=== PATIENT | male | born 1985 | race Caucasian/White ===

== ENCOUNTER 2023-10-11 02:35 | Emergency (ER) | payer BC, SELFPAY ==
[2023-10-11 02:41] VITALS: BP 148/83
[2023-10-11] MEDS: ATIVAN 2 MG IM (03:04)
[2023-10-11] MEDS: HALDOL 10 MG IM (03:07)
--- NOTE | 2023-10-11 05:16 | ED.GENMED ---
History of Present Illness
General
Chief Complaint: Crisis Evaluation
Source: patient and police
Exam Limitations: clinical condition and altered mental status
Time Seen by Provider: 10/11/23 02:44
Nursing documentation reviewed up to this point in time: agreed with
Travel History
Have you had any contact with someone who has COVID-19?: Unable to Answer
Do you have any symptoms of coronavirus? Fever > 100 degrees, chills, cough, shortness of breath, sore throat, loss of taste or smell, muscle aches, or headache?: No
History of Present Illness
History of Present Illness:
37-year-old male that presents with psychotic episodes that include anger hallucinations and irrational behavior. Patient has a history of PTSD and has had PTSD episodes. Tonight patient was allegedly threatening the safety of others. Patient is
minimally cooperative at this time.
Past History
Past History
ED Past Medical History: Asthma (has not bothered him for 'years.') and Psychiatric
Social History
Tobacco: Smoker
Alcohol: Occasional
Personal:
Living: with family
Employment: Not employed
Phy Exam
General Physical Exam
General Presentation: moderate distress
General age: appears older than age
General Skin: warm and dry
General Habitus: normal
Neurological Exam
Neurological Exam: confused
Musculoskeletal Exam
Musculoskeletal Exam: full ROM and neuro vasc intact
Skin Exam
Skin Exam: other (Multiple tattoos)
Psychiatric Exam
Psychiatric Exam: anxious, delusions, hallucination and paranoia
Course
Orders/Labs/Results
Orders:
Orders
10/11/23 03:03
Lorazepam [Ativan] 2 mg IM NOW STA
10/11/23 03:06
Haloperidol Lactate [Haldol] 10 mg IM NOW STA
Vital Signs
Initial and Last Documented VS:
Initial Vital Signs
Resp
18
10/11/23 02:37
Last Documented Vital Signs
Temp Pulse Resp BP Pulse Ox
98.0 F 91 18 148/83 98
10/11/23 02:41 10/11/23 02:41 10/11/23 02:41 10/11/23 02:41 10/11/23 02:41
*Critical Care Note
Total Time (30-74mins, 75-104mins- exclusive of procedures): Not Applicable
ED Attending Note
-
Portions of this chart may have been created with voice recognition software.� Occasional wrong word or��sound alike� substitutions may have occurred due to the inherent limitations of voice recognition software.
Discharge Plan
Departure
Patient Disposition: Psych Facility
Date of Disposition: 10/11/23
Time of Disposition: 05:21
Discharge Problem:
Schizophrenia
Prescriptions:
No Action
baclofen 20 mg Tablet
40 mg PO TID
lurasidone [Latuda] 80 mg Tablet
80 mg PO QPM
Rx Instructions:
must administer with food (at least 350 calories)- 03/01/23-patient asking not to be giving this today cause it makes him shake, but has been taking her regular at home
nicotine (polacrilex) 2 mg Gum
4 mg BUCCAL Q1HPRN PRN (Reason: vaper control )
cyanocobalamin (vitamin B-12) 1,000 mcg Tablet
1,000 mcg PO DAILY
propranolol 10 mg Tablet
10 mg PO BID
benztropine 1 mg Tablet
1 mg PO BID
oxcarbazepine 600 mg Tablet
600 mg PO HS
Rx Instructions:
03/01/23-patien exaplained he was only taking one at night, but prescription written for 600mg bid
Referrals:
UNKNOWN - PT DOES,NOT KNOW [Family Provider] -
Interventions
Interventions:
*Risk Screen - Suicide Last Done: 10/11/23 02:50
*General Assessment Last Done: 10/11/23 02:50
*Neglect/Abuse Screening Last Done: 10/11/23 02:50
ED- Fall Risk Assessment Last Done: 10/11/23 03:08
*ED COVID-19 Vaccine History Last Done: 10/11/23 02:50
*Nursing Disposition Last Done: 10/11/23 09:36
ED-Psychological Assessment Last Done: 10/11/23 03:08
Discharge Date and Time
Discharge Date/Time: 10/11/23 09:38
Print Language: OMANI
--- NOTE | 2023-10-11 08:26 | ED TECH ---
Pt repeatedly leaving room and asking to make phone calls. This PCT called crisis and asked if e was allowed to have his phone. Teresita from crisis brought his phone back, pt making phone calls. Per Teresita from crisis, pt is leaving for [place] @ 10am.
Will continue with 1:1 until transport arrives.
== END 2023-10-11 09:38 ==
LOC: EMR 02:35
PROVIDERS: EMERGENCY PHYSICIAN Student in an Organized Health Care Education/Training Program
DX: F20.9 Schizophrenia, unspecified (principal); F43.10 Post-traumatic stress disorder, unspecified; F17.200 Nicotine dependence, unspecified, uncomplicated
CPT/HCPCS: 99285; 96372 ×2

== ENCOUNTER 2024-08-01 21:19 | Emergency (ER) | payer BC, SELFPAY ==
[2024-08-01 21:19] VITALS: BMI 25.6
[2024-08-01] MEDS: KETAMINE HCL 300 MG IM (22:37)
[2024-08-01 23:00] VITALS: BP 189/66
--- NOTE | 2024-08-01 23:01 | ED.GENMED ---
History of Present Illness
<Neymar Calhoun MD - Last Filed: 08/05/24 06:28>
General
Chief Complaint: Crisis Evaluation
Source: patient and police
Exam Limitations: altered mental status
Time Seen by Provider: 08/01/24 21:25
Nursing documentation reviewed up to this point in time: agreed with
History of Present Illness
History of Present Illness:
Patient with history of TBI, bipolar disorder, and PTSD, presents to ED for evaluation secondary to 'manic behavior' noted by his father. Patient's father called 911 and informed alfalfa dehydrator operator that he will be bringing patient to [facility], but
will need police assistance, due to his erratic behavior. Shortly after arriving in ED, patient noted to walk out to ED and proceeded to punch the flagpole with his right hand. Patient was subsequently assisted into one of the ED crisis beds,
where he proceeded to punch the right side of his head with his right hand, causing minor bleeding. Unable to obtain any further information at this time, as patient is uncooperative and pacing.
Past History
<Neymar Calhoun MD - Last Filed: 08/05/24 06:28>
Past History
ED Past Medical History: Asthma (has not bothered him for 'years.') and Psychiatric
Social History
Tobacco: Smoker
Alcohol: Occasional
Personal:
Living: with family
Employment: Not employed
Review of Systems
<Neymar Calhoun MD - Last Filed: 08/05/24 06:28>
Review of Systems
Allergies reviewed?: Yes
Unable to obtain full review of systems at this time due to: due to acuity
All Other Systems: Not applicable
Phy Exam
<Neymar Calhoun MD - Last Filed: 08/05/24 06:28>
Physical Exam
Physical Exam:
Physical Exam
General: moderate distress. agitated.
Head: superficial abrasion noted over right temporal scalp without active bleeding
Neck: supple. normal range of motion
Heart: s1/s2 regular rate and rhythm, no murmur.
Lungs: no acute respiratory distress. clear bilaterally
Abdomen: normal bowel sounds. not tender.
Neuro: alert and awake. no focal neurological deficits
Skin: no rash
Psychiatric: agitated, uncooperative
Extremities: right hand swelling noted along MCP noted, without obvious deformity
Course
<Neymar Calhoun MD - Last Filed: 08/05/24 06:28>
Orders/Labs/Results
Orders:
Orders
08/01/24 21:57
Ketamine Concentrate Injection [Ketamine HCl] 300 mg IM NOW STA
08/01/24 21:58
Ketamine Concentrate Injection [Ketamine HCl] 500 mg .ROUTE .STK-MED ONE
08/01/24 22:52
CT Head W/o Iv Contrast Urgent
Comment:
Reason For Exam: trauma with mental status change
CR Hand - Right Min 3 Views Urgent
Comment:
Reason For Exam: trauma
08/01/24 22:55
1:1 Observation - Suicide/ Violent Behavior As Directed
1:1 Observation - Suicide/ Violent Behavior As Directed
Urine Drug Abuse Screen Urgent
Date Specimen was Collected: 08/01/24
Time Specimen was Collected: 23:39
Restraints - Violent As Directed
Restraint Type-: Locked-4 point/4 rails
Apply From (date): 08/01/24
Apply from (time): 22:45
Remove (date): 08/02/24
Remove (time): 02:45
08/01/24 22:59
Acetaminophen Urgent
Alcohol Urgent
Complete Blood Count/No Diff Urgent
Comprehensive Metabolic Panel Urgent
Creatine Phosphokinase Urgent
Comment: ADD ON
Salicylate Urgent
08/01/24 23:06
Lorazepam [Ativan] 2 mg .ROUTE .STK-MED ONE
08/01/24 23:11
Ketamine [Ketalar] 70 mg IV NOW STA
Lorazepam [Ativan] 2 mg IV NOW STA
08/01/24 23:53
Crisis Consult Urgent
Reason for Consult: manic behavior
08/02/24 00:16
Haloperidol Lactate [Haldol] 5 mg IV NOW STA
Lorazepam [Ativan] 1 mg IV NOW STA
08/02/24 00:17
Haloperidol Lactate [Haldol] 5 mg .ROUTE .STK-MED ONE
Lorazepam [Ativan] 2 mg .ROUTE .STK-MED ONE
08/02/24 00:24
Electrocardiogram (*1) Urgent
Reason for Study: QTc Monitoring
EKG- Treatment ONCE
08/02/24 00:30
Lorazepam [Ativan] 1 mg IV NOW STA
08/02/24 00:40
0.9% Sodium Chloride 1000 ml [Nss] 1,000 ml IV BOLUS
08/02/24 01:17
Lorazepam [Ativan] 2 mg IV NOW STA
Olanzapine [Zyprexa] 10 mg IM NOW STA
08/02/24 01:40
Ketamine [Ketalar] 100 mg IV NOW STA
08/02/24 01:50
Add On- LAB Urgent
Tests Added?: cpk
08/02/24 02:30
Haloperidol Lactate [Haldol] 5 mg IV NOW STA
08/02/24 02:44
1:1 Observation - Suicide/ Violent Behavior As Directed
Restraints - Violent As Directed
Restraint Type-: Locked-4 point/4 rails
Apply From (date): 08/02/24
Apply from (time): 02:44
Remove (date): 08/02/24
Remove (time): 06:44
08/02/24 05:00
PSYCHIATRY CONSULT Urgent
Consulting Provider: Sravan Nieto
Was physician already notified: No
Reason for consult: anxiety
Haloperidol Lactate [Haldol] 5 mg IV NOW STA
08/02/24 05:01
Consult Notification Routine
Specialty to Notify: Psychiatry
Date consulting provider notified: 08/02/24
Time consulting provider notified: 09:11
Notified:: Provider
08/02/24 05:35
Basic Metabolic Panel Urgent
08/02/24 06:44
Restraints - Violent As Directed
Restraint Type-: Locked-4 point/4 rails
Apply From (date): 08/02/24
Apply from (time): 06:49
Remove (date): 08/02/24
Remove (time): 10:49
08/02/24 09:51
Creatine Phosphokinase Urgent
Fkmzo-Fvyu-Fbzthxp Urgent
08/02/24 10:49
0.9% Sodium Chloride 1000 ml [Nss] 1,000 ml IV BOLUS
08/02/24 11:39
Fentanyl, Urine Urgent
08/02/24 20:00
0.9% Sodium Chloride 1000 ml [Nss] 1,000 ml IV BOLUS
08/02/24 20:41
Consult Hospitalist [HOSPITALIST CONSULT] Urgent
Consulting Provider: Jitendra Cunningham
Was physician already notified: Yes
08/02/24 20:52
Olanzapine [Zyprexa] 5 mg PO NOW STA
08/02/24 21:13
0.9% Sodium Chloride [Nss (Preservative Free)] 1 ml IV Q4HPRN PRN
Lorazepam [Ativan] 2 mg IV Q4HPRN PRN
08/02/24 21:15
0.9% Sodium Chloride 1000 ml [Nss] 1,000 ml IV 250 mls/hr
08/02/24 21:32
Oxcarbazepine [Trileptal] 300 mg PO NOW STA
08/02/24 21:34
Case Management Consult Once
Case Management Consult: Other
Comment: Substance abuse counseling
DIETARY IP CONSULT Routine
Reason for Consult: Nutrition support, possible refeeding guidelines
0.9% Sodium Chloride [Nss (Preservative Free)] See Protocol IV PRN PRN
FOLic ACID [Folvite] 1 mg 0.9% Sodium Chloride 50 ml [Nss] 50 ml IV DAILYPRN
Lorazepam [Ativan] 1 mg IV Q1HPRN PRN
Lorazepam [Ativan] 1 mg PO Q2HPRN PRN
Lorazepam [Ativan] 2 mg IV Q1HPRN PRN
MSAS SCORE As Directed
MSAS Score 0-4: Repeat MSAS every 2 hours until 0-4 for three consecutive assessments, then every 4 hours x 48
hours.
MSAS Score 5-7: For MILD withdrawl symptoms. Repeat MSAS and RASS every 2 hours
MSAS Score 8-11: For MODERATE withdrawal symptoms. Repeat MSAS and RASS every 1 hour. Consider ICU or IMU
level of care.
MSAS Score > 11: For SEVERE withdrawal symptoms. Repeat MSAS and RASS every 1 hour. Notify provider, consider
ICU level of care.
MSAS Additional Instructions: If no improvement or no decrease in score from severe to moderate within 12
hours, consult psychiatry
MSAS Notify Provider: Notify provider if patient requires more than 10 mg of Lorazepam in eight hour period.
08/02/24 21:40
Urinalysis Urgent
Date Specimen was Collected: 08/03/24
Time Specimen was Collected: 07:59
08/02/24 21:46
Dextrose 50%-Water [Dextrose 50% Syringe] 12.5 grams IV [id number] PRN
Glucagon [GlucaGen] 1 mg IM PRN PRN
Bedside Glucose Monitoring As Directed
Frequency: AC&HS
Additional Instructions:: Change to q6h if pt on TPN, tube feeding or not eating
08/02/24 22:00
Flush (0.9% Sodium Chloride) [Flush (Nss)] See Dose Instructions IV PER PROTOCOL
Quetiapine Fumarate [Seroquel] 100 mg PO HS
08/03/24 00:00
Thiamine Injection 200 mg IV Q8
08/03/24 06:05
CBC/No Diff [Complete Blood Count/No Diff] IN AM
CPK [Creatine Phosphokinase] IN AM
Comprehensive Metabolic Panel Routine
Direct Bilirubin Routine
Glycohemoglobin (HgbA1c) IN AM
08/03/24 06:56
0.9% Sodium Chloride 1000 ml [Nss] 1,000 ml IV BOLUS
08/03/24 07:30
Insulin Aspart Corrective Low [Novolog Flexpen-Low Resistance] See Protocol SC AC
08/03/24 08:00
FOLic ACID [Folvite] 1 mg PO DAILY
Oxcarbazepine [Trileptal] 300 mg PO BID
08/03/24 11:52
CPK [Creatine Phosphokinase] Routine
08/03/24 13:52
ED Special Safety Observation ONCE
Observation level: One to Two
08/03/24 19:04
Total CK [Creatine Phosphokinase] Urgent
08/04/24 06:00
Creatine Phosphokinase IN AM
08/04/24 18:32
Nicotine [Nicoderm Transdermal] 14 mg TRANSDERM DAILY
08/04/24 18:46
Total CK [Creatine Phosphokinase] Urgent
08/06/24 08:00
Thiamine HCl [Vitamin B1] 100 mg PO BID
Abnormal Lab Results
08/01/24 08/02/24 08/02/24
22:59 05:35 09:51
WBC 11.9 H 10^3/uL
(4.8-10.8)
RBC
MCH
Chloride 110 H mmol/L
(98-107)
Carbon Dioxide 21 L mmol/L
(22-30)
BUN 35 H mg/dl 30 H mg/dl
(9-20) (9-20)
Creatinine 1.5 H mg/dL
(0.7-1.3)
Hemoglobin A1c
Calcium
Total Bilirubin 1.4 H mg/dl
(0.2-1.3)
AST 200 H U/L 158 H U/L
(17-59) (17-59)
ALT 93 H U/L 87 H U/L
(0-50) (0-50)
Creatine Kinase 8828 H U/L 6714 H U/L
(55-170) (55-170)
Total Protein 5.8 L g/dl
(6.3-8.2)
Albumin
Urine Ketones
Salicylates < 1.0 L mg/dl
(2.0-20.0)
Acetaminophen < 10 L ug/ml
(03-13)
Ur Amphetamines Screen
U Benzodiazepines Scrn
U Marijuana (THC) Screen
POC Glucose
08/02/24 08/02/24 08/03/24
11:39 21:52 06:05
WBC
RBC 4.56 L 10^6/uL
(4.70-6.10)
MCH 31.4 H pg
(27.0-31.0)
Chloride 110 H mmol/L
(98-107)
Carbon Dioxide
BUN
Creatinine
Hemoglobin A1c 5.7 H %
(4.0-5.6)
Calcium 7.9 L mg/dl
(8.4-10.2)
Total Bilirubin
AST 121 H U/L
(17-59)
ALT 81 H U/L
(0-50)
Creatine Kinase 3905 H D U/L
(55-170)
Total Protein 4.9 L g/dl
(6.3-8.2)
Albumin 2.9 L g/dl
(3.5-5.0)
Urine Ketones
Salicylates
Acetaminophen
Ur Amphetamines Screen Positive H
(Negative)
U Benzodiazepines Scrn Positive H
(Negative)
U Marijuana (THC) Screen Positive H
(Negative)
POC Glucose 104 H mg/dl
(70-99)
08/03/24 08/03/24 08/03/24
08:00 09:31 11:52
WBC
RBC
MCH
Chloride
Carbon Dioxide
BUN
Creatinine
Hemoglobin A1c
Calcium
Total Bilirubin
AST
ALT
Creatine Kinase 3619 H U/L
(55-170)
Total Protein
Albumin
Urine Ketones 1+ A
(Negative)
Salicylates
Acetaminophen
Ur Amphetamines Screen
U Benzodiazepines Scrn
U Marijuana (THC) Screen
POC Glucose 154 H mg/dl
(70-99)
08/03/24 08/04/24 08/04/24
19:04 06:00 08:17
WBC
RBC
MCH
Chloride
Carbon Dioxide
BUN
Creatinine
Hemoglobin A1c
Calcium
Total Bilirubin
AST
ALT
Creatine Kinase 2921 H U/L 1402 H D U/L
(55-170) (55-170)
Total Protein
Albumin
Urine Ketones
Salicylates
Acetaminophen
Ur Amphetamines Screen
U Benzodiazepines Scrn
U Marijuana (THC) Screen
POC Glucose 125 H mg/dl
(70-99)
08/04/24
18:46
WBC
RBC
MCH
Chloride
Carbon Dioxide
BUN
Creatinine
Hemoglobin A1c
Calcium
Total Bilirubin
AST
ALT
Creatine Kinase 1146 H U/L
(55-170)
Total Protein
Albumin
Urine Ketones
Salicylates
Acetaminophen
Ur Amphetamines Screen
U Benzodiazepines Scrn
U Marijuana (THC) Screen
POC Glucose
08/03/24 06:05
08/03/24 06:05
Vital Signs
Initial and Last Documented VS:
Initial Vital Signs
Pulse Resp BP Pulse Ox
79 20 189/66 98
08/01/24 23:00 08/01/24 23:00 08/01/24 23:00 08/01/24 23:00
Last Documented Vital Signs
Temp Pulse Resp BP Pulse Ox
98.5 F 79 16 128/75 97
08/04/24 19:11 08/04/24 19:11 08/04/24 19:11 08/04/24 19:11 08/04/24 19:11
<Gunner Lew, DO - Last Filed: 08/02/24 06:55>
Orders/Labs/Results
Orders:
Orders
08/01/24 21:57
Ketamine Concentrate Injection [Ketamine HCl] 300 mg IM NOW STA
08/01/24 21:58
Ketamine Concentrate Injection [Ketamine HCl] 500 mg .ROUTE .STK-MED ONE
08/01/24 22:52
CT Head W/o Iv Contrast Urgent
Comment:
Reason For Exam: trauma with mental status change
CR Hand - Right Min 3 Views Urgent
Comment:
Reason For Exam: trauma
08/01/24 22:55
1:1 Observation - Suicide/ Violent Behavior As Directed
1:1 Observation - Suicide/ Violent Behavior As Directed
Urine Drug Abuse Screen Urgent
Date Specimen was Collected: 08/01/24
Time Specimen was Collected: 23:39
Restraints - Violent As Directed
Restraint Type-: Locked-4 point/4 rails
Apply From (date): 08/01/24
Apply from (time): 22:45
Remove (date): 08/02/24
Remove (time): 02:45
08/01/24 22:59
Acetaminophen Urgent
Alcohol Urgent
Complete Blood Count/No Diff Urgent
Comprehensive Metabolic Panel Urgent
Creatine Phosphokinase Urgent
Comment: ADD ON
Salicylate Urgent
08/01/24 23:06
Lorazepam [Ativan] 2 mg .ROUTE .STK-MED ONE
08/01/24 23:11
Ketamine [Ketalar] 70 mg IV NOW STA
Lorazepam [Ativan] 2 mg IV NOW STA
08/01/24 23:53
Crisis Consult Urgent
Reason for Consult: manic behavior
08/02/24 00:16
Haloperidol Lactate [Haldol] 5 mg IV NOW STA
Lorazepam [Ativan] 1 mg IV NOW STA
08/02/24 00:17
Haloperidol Lactate [Haldol] 5 mg .ROUTE .STK-MED ONE
Lorazepam [Ativan] 2 mg .ROUTE .STK-MED ONE
08/02/24 00:24
Electrocardiogram (*1) Urgent
Reason for Study: QTc Monitoring
EKG- Treatment ONCE
08/02/24 00:30
Lorazepam [Ativan] 1 mg IV NOW STA
08/02/24 00:40
0.9% Sodium Chloride 1000 ml [Nss] 1,000 ml IV BOLUS
08/02/24 01:17
Lorazepam [Ativan] 2 mg IV NOW STA
Olanzapine [Zyprexa] 10 mg IM NOW STA
08/02/24 01:40
Ketamine [Ketalar] 100 mg IV NOW STA
08/02/24 01:50
Add On- LAB Urgent
Tests Added?: cpk
08/02/24 02:30
Haloperidol Lactate [Haldol] 5 mg IV NOW STA
08/02/24 02:44
1:1 Observation - Suicide/ Violent Behavior As Directed
Restraints - Violent As Directed
Restraint Type-: Locked-4 point/4 rails
Apply From (date): 08/02/24
Apply from (time): 02:44
Remove (date): 08/02/24
Remove (time): 06:44
08/02/24 05:00
PSYCHIATRY CONSULT Urgent
Consulting Provider: Sravan Nieto
Was physician already notified: No
Reason for consult: anxiety
Haloperidol Lactate [Haldol] 5 mg IV NOW STA
08/02/24 05:01
Consult Notification Routine
Specialty to Notify: Psychiatry
Date consulting provider notified: 08/02/24
Time consulting provider notified: 09:11
Notified:: Provider
08/02/24 05:35
Basic Metabolic Panel Urgent
08/02/24 06:44
Restraints - Violent As Directed
Restraint Type-: Locked-4 point/4 rails
Apply From (date): 08/02/24
Apply from (time): 06:49
Remove (date): 08/02/24
Remove (time): 10:49
08/02/24 09:51
Creatine Phosphokinase Urgent
Vcbwp-Zkfo-Fphtvam Urgent
08/02/24 10:49
0.9% Sodium Chloride 1000 ml [Nss] 1,000 ml IV BOLUS
08/02/24 11:39
Fentanyl, Urine Urgent
08/02/24 20:00
0.9% Sodium Chloride 1000 ml [Nss] 1,000 ml IV BOLUS
08/02/24 20:41
Consult Hospitalist [HOSPITALIST CONSULT] Urgent
Consulting Provider: Jitendra Cunningham
Was physician already notified: Yes
08/02/24 20:52
Olanzapine [Zyprexa] 5 mg PO NOW STA
08/02/24 21:13
0.9% Sodium Chloride [Nss (Preservative Free)] 1 ml IV Q4HPRN PRN
Lorazepam [Ativan] 2 mg IV Q4HPRN PRN
08/02/24 21:15
0.9% Sodium Chloride 1000 ml [Nss] 1,000 ml IV 250 mls/hr
08/02/24 21:32
Oxcarbazepine [Trileptal] 300 mg PO NOW STA
08/02/24 21:34
Case Management Consult Once
Case Management Consult: Other
Comment: Substance abuse counseling
DIETARY IP CONSULT Routine
Reason for Consult: Nutrition support, possible refeeding guidelines
0.9% Sodium Chloride [Nss (Preservative Free)] See Protocol IV PRN PRN
FOLic ACID [Folvite] 1 mg 0.9% Sodium Chloride 50 ml [Nss] 50 ml IV DAILYPRN
Lorazepam [Ativan] 1 mg IV Q1HPRN PRN
Lorazepam [Ativan] 1 mg PO Q2HPRN PRN
Lorazepam [Ativan] 2 mg IV Q1HPRN PRN
MSAS SCORE As Directed
MSAS Score 0-4: Repeat MSAS every 2 hours until 0-4 for three consecutive assessments, then every 4 hours x 48
hours.
MSAS Score 5-7: For MILD withdrawl symptoms. Repeat MSAS and RASS every 2 hours
MSAS Score 8-11: For MODERATE withdrawal symptoms. Repeat MSAS and RASS every 1 hour. Consider ICU or IMU
level of care.
MSAS Score > 11: For SEVERE withdrawal symptoms. Repeat MSAS and RASS every 1 hour. Notify provider, consider
ICU level of care.
MSAS Additional Instructions: If no improvement or no decrease in score from severe to moderate within 12
hours, consult psychiatry
MSAS Notify Provider: Notify provider if patient requires more than 10 mg of Lorazepam in eight hour period.
08/02/24 21:40
Urinalysis Urgent
Date Specimen was Collected: 08/03/24
Time Specimen was Collected: 07:59
08/02/24 21:46
Dextrose 50%-Water [Dextrose 50% Syringe] 12.5 grams IV [id number] PRN
Glucagon [GlucaGen] 1 mg IM PRN PRN
Bedside Glucose Monitoring As Directed
Frequency: AC&HS
Additional Instructions:: Change to q6h if pt on TPN, tube feeding or not eating
08/02/24 22:00
Flush (0.9% Sodium Chloride) [Flush (Nss)] See Dose Instructions IV PER PROTOCOL
Quetiapine Fumarate [Seroquel] 100 mg PO HS
08/03/24 00:00
Thiamine Injection 200 mg IV Q8
08/03/24 06:05
CBC/No Diff [Complete Blood Count/No Diff] IN AM
CPK [Creatine Phosphokinase] IN AM
Comprehensive Metabolic Panel Routine
Direct Bilirubin Routine
Glycohemoglobin (HgbA1c) IN AM
08/03/24 06:56
0.9% Sodium Chloride 1000 ml [Nss] 1,000 ml IV BOLUS
08/03/24 07:30
Insulin Aspart Corrective Low [Novolog Flexpen-Low Resistance] See Protocol SC AC
08/03/24 08:00
FOLic ACID [Folvite] 1 mg PO DAILY
Oxcarbazepine [Trileptal] 300 mg PO BID
08/03/24 11:52
CPK [Creatine Phosphokinase] Routine
08/03/24 13:52
ED Special Safety Observation ONCE
Observation level: One to Two
08/03/24 19:04
Total CK [Creatine Phosphokinase] Urgent
08/04/24 06:00
Creatine Phosphokinase IN AM
08/04/24 18:32
Nicotine [Nicoderm Transdermal] 14 mg TRANSDERM DAILY
08/04/24 18:46
Total CK [Creatine Phosphokinase] Urgent
08/06/24 08:00
Thiamine HCl [Vitamin B1] 100 mg PO BID
Abnormal Lab Results
08/01/24 08/02/24 08/02/24
22:59 05:35 09:51
WBC 11.9 H 10^3/uL
(4.8-10.8)
RBC
MCH
Chloride 110 H mmol/L
(98-107)
Carbon Dioxide 21 L mmol/L
(22-30)
BUN 35 H mg/dl 30 H mg/dl
(9-20) (9-20)
Creatinine 1.5 H mg/dL
(0.7-1.3)
Hemoglobin A1c
Calcium
Total Bilirubin 1.4 H mg/dl
(0.2-1.3)
AST 200 H U/L 158 H U/L
(17-59) (17-59)
ALT 93 H U/L 87 H U/L
(0-50) (0-50)
Creatine Kinase 8828 H U/L 6714 H U/L
(55-170) (55-170)
Total Protein 5.8 L g/dl
(6.3-8.2)
Albumin
Urine Ketones
Salicylates < 1.0 L mg/dl
(2.0-20.0)
Acetaminophen < 10 L ug/ml
(10-30)
Ur Amphetamines Screen
U Benzodiazepines Scrn
U Marijuana (THC) Screen
POC Glucose
08/02/24 08/02/24 08/03/24
11:39 21:52 06:05
WBC
RBC 4.56 L 10^6/uL
(4.70-6.10)
MCH 31.4 H pg
(27.0-31.0)
Chloride 110 H mmol/L
(98-107)
Carbon Dioxide
BUN
Creatinine
Hemoglobin A1c 5.7 H %
(4.0-5.6)
Calcium 7.9 L mg/dl
(8.4-10.2)
Total Bilirubin
AST 121 H U/L
(17-59)
ALT 81 H U/L
(0-50)
Creatine Kinase 3905 H D U/L
(55-170)
Total Protein 4.9 L g/dl
(6.3-8.2)
Albumin 2.9 L g/dl
(3.5-5.0)
Urine Ketones
Salicylates
Acetaminophen
Ur Amphetamines Screen Positive H
(Negative)
U Benzodiazepines Scrn Positive H
(Negative)
U Marijuana (THC) Screen Positive H
(Negative)
POC Glucose 104 H mg/dl
(70-99)
08/03/24 08/03/24 08/03/24
08:00 09:31 11:52
WBC
RBC
MCH
Chloride
Carbon Dioxide
BUN
Creatinine
Hemoglobin A1c
Calcium
Total Bilirubin
AST
ALT
Creatine Kinase 3619 H U/L
(55-170)
Total Protein
Albumin
Urine Ketones 1+ A
(Negative)
Salicylates
Acetaminophen
Ur Amphetamines Screen
U Benzodiazepines Scrn
U Marijuana (THC) Screen
POC Glucose 154 H mg/dl
(70-99)
08/03/24 08/04/24 08/04/24
19:04 06:00 08:17
WBC
RBC
MCH
Chloride
Carbon Dioxide
BUN
Creatinine
Hemoglobin A1c
Calcium
Total Bilirubin
AST
ALT
Creatine Kinase 2921 H U/L 1402 H D U/L
(55-170) (55-170)
Total Protein
Albumin
Urine Ketones
Salicylates
Acetaminophen
Ur Amphetamines Screen
U Benzodiazepines Scrn
U Marijuana (THC) Screen
POC Glucose 125 H mg/dl
(70-99)
08/04/24
18:46
WBC
RBC
MCH
Chloride
Carbon Dioxide
BUN
Creatinine
Hemoglobin A1c
Calcium
Total Bilirubin
AST
ALT
Creatine Kinase 1146 H U/L
(55-170)
Total Protein
Albumin
Urine Ketones
Salicylates
Acetaminophen
Ur Amphetamines Screen
U Benzodiazepines Scrn
U Marijuana (THC) Screen
POC Glucose
08/03/24 06:05
08/03/24 06:05
Vital Signs
Initial and Last Documented VS:
Initial Vital Signs
Pulse Resp BP Pulse Ox
79 20 189/66 98
08/01/24 23:00 08/01/24 23:00 08/01/24 23:00 08/01/24 23:00
Last Documented Vital Signs
Temp Pulse Resp BP Pulse Ox
98.5 F 79 16 128/75 97
08/04/24 19:11 08/04/24 19:11 08/04/24 19:11 08/04/24 19:11 08/04/24 19:11
<Lizbeth Wagner MD - Last Filed: 08/03/24 03:44>
Orders/Labs/Results
Orders:
Orders
08/01/24 21:57
Ketamine Concentrate Injection [Ketamine HCl] 300 mg IM NOW STA
08/01/24 21:58
Ketamine Concentrate Injection [Ketamine HCl] 500 mg .ROUTE .STK-MED ONE
08/01/24 22:52
CT Head W/o Iv Contrast Urgent
Comment:
Reason For Exam: trauma with mental status change
CR Hand - Right Min 3 Views Urgent
Comment:
Reason For Exam: trauma
08/01/24 22:55
1:1 Observation - Suicide/ Violent Behavior As Directed
1:1 Observation - Suicide/ Violent Behavior As Directed
Urine Drug Abuse Screen Urgent
Date Specimen was Collected: 08/01/24
Time Specimen was Collected: 23:39
Restraints - Violent As Directed
Restraint Type-: Locked-4 point/4 rails
Apply From (date): 08/01/24
Apply from (time): 22:45
Remove (date): 08/02/24
Remove (time): 02:45
08/01/24 22:59
Acetaminophen Urgent
Alcohol Urgent
Complete Blood Count/No Diff Urgent
Comprehensive Metabolic Panel Urgent
Creatine Phosphokinase Urgent
Comment: ADD ON
Salicylate Urgent
08/01/24 23:06
Lorazepam [Ativan] 2 mg .ROUTE .STK-MED ONE
08/01/24 23:11
Ketamine [Ketalar] 70 mg IV NOW STA
Lorazepam [Ativan] 2 mg IV NOW STA
08/01/24 23:53
Crisis Consult Urgent
Reason for Consult: manic behavior
08/02/24 00:16
Haloperidol Lactate [Haldol] 5 mg IV NOW STA
Lorazepam [Ativan] 1 mg IV NOW STA
08/02/24 00:17
Haloperidol Lactate [Haldol] 5 mg .ROUTE .STK-MED ONE
Lorazepam [Ativan] 2 mg .ROUTE .STK-MED ONE
08/02/24 00:24
Electrocardiogram (*1) Urgent
Reason for Study: QTc Monitoring
EKG- Treatment ONCE
08/02/24 00:30
Lorazepam [Ativan] 1 mg IV NOW STA
08/02/24 00:40
0.9% Sodium Chloride 1000 ml [Nss] 1,000 ml IV BOLUS
08/02/24 01:17
Lorazepam [Ativan] 2 mg IV NOW STA
Olanzapine [Zyprexa] 10 mg IM NOW STA
08/02/24 01:40
Ketamine [Ketalar] 100 mg IV NOW STA
08/02/24 01:50
Add On- LAB Urgent
Tests Added?: cpk
08/02/24 02:30
Haloperidol Lactate [Haldol] 5 mg IV NOW STA
08/02/24 02:44
1:1 Observation - Suicide/ Violent Behavior As Directed
Restraints - Violent As Directed
Restraint Type-: Locked-4 point/4 rails
Apply From (date): 08/02/24
Apply from (time): 02:44
Remove (date): 08/02/24
Remove (time): 06:44
08/02/24 05:00
PSYCHIATRY CONSULT Urgent
Consulting Provider: Sravan Nieto
Was physician already notified: No
Reason for consult: anxiety
Haloperidol Lactate [Haldol] 5 mg IV NOW STA
08/02/24 05:01
Consult Notification Routine
Specialty to Notify: Psychiatry
Date consulting provider notified: 08/02/24
Time consulting provider notified: 09:11
Notified:: Provider
08/02/24 05:35
Basic Metabolic Panel Urgent
08/02/24 06:44
Restraints - Violent As Directed
Restraint Type-: Locked-4 point/4 rails
Apply From (date): 08/02/24
Apply from (time): 06:49
Remove (date): 08/02/24
Remove (time): 10:49
08/02/24 09:51
Creatine Phosphokinase Urgent
Wzjxv-Niqv-Bariddy Urgent
08/02/24 10:49
0.9% Sodium Chloride 1000 ml [Nss] 1,000 ml IV BOLUS
08/02/24 11:39
Fentanyl, Urine Urgent
08/02/24 20:00
0.9% Sodium Chloride 1000 ml [Nss] 1,000 ml IV BOLUS
08/02/24 20:41
Consult Hospitalist [HOSPITALIST CONSULT] Urgent
Consulting Provider: Jitendra Cunningham
Was physician already notified: Yes
08/02/24 20:52
Olanzapine [Zyprexa] 5 mg PO NOW STA
08/02/24 21:13
0.9% Sodium Chloride [Nss (Preservative Free)] 1 ml IV Q4HPRN PRN
Lorazepam [Ativan] 2 mg IV Q4HPRN PRN
08/02/24 21:15
0.9% Sodium Chloride 1000 ml [Nss] 1,000 ml IV 250 mls/hr
08/02/24 21:32
Oxcarbazepine [Trileptal] 300 mg PO NOW STA
08/02/24 21:34
Case Management Consult Once
Case Management Consult: Other
Comment: Substance abuse counseling
DIETARY IP CONSULT Routine
Reason for Consult: Nutrition support, possible refeeding guidelines
0.9% Sodium Chloride [Nss (Preservative Free)] See Protocol IV PRN PRN
FOLic ACID [Folvite] 1 mg 0.9% Sodium Chloride 50 ml [Nss] 50 ml IV DAILYPRN
Lorazepam [Ativan] 1 mg IV Q1HPRN PRN
Lorazepam [Ativan] 1 mg PO Q2HPRN PRN
Lorazepam [Ativan] 2 mg IV Q1HPRN PRN
MSAS SCORE As Directed
MSAS Score 0-4: Repeat MSAS every 2 hours until 0-4 for three consecutive assessments, then every 4 hours x 48
hours.
MSAS Score 5-7: For MILD withdrawl symptoms. Repeat MSAS and RASS every 2 hours
MSAS Score 8-11: For MODERATE withdrawal symptoms. Repeat MSAS and RASS every 1 hour. Consider ICU or IMU
level of care.
MSAS Score > 11: For SEVERE withdrawal symptoms. Repeat MSAS and RASS every 1 hour. Notify provider, consider
ICU level of care.
MSAS Additional Instructions: If no improvement or no decrease in score from severe to moderate within 12
hours, consult psychiatry
MSAS Notify Provider: Notify provider if patient requires more than 10 mg of Lorazepam in eight hour period.
08/02/24 21:40
Urinalysis Urgent
Date Specimen was Collected: 08/03/24
Time Specimen was Collected: 07:59
08/02/24 21:46
Dextrose 50%-Water [Dextrose 50% Syringe] 12.5 grams IV [id number] PRN
Glucagon [GlucaGen] 1 mg IM PRN PRN
Bedside Glucose Monitoring As Directed
Frequency: AC&HS
Additional Instructions:: Change to q6h if pt on TPN, tube feeding or not eating
08/02/24 22:00
Flush (0.9% Sodium Chloride) [Flush (Nss)] See Dose Instructions IV PER PROTOCOL
Quetiapine Fumarate [Seroquel] 100 mg PO HS
08/03/24 00:00
Thiamine Injection 200 mg IV Q8
08/03/24 06:05
CBC/No Diff [Complete Blood Count/No Diff] IN AM
CPK [Creatine Phosphokinase] IN AM
Comprehensive Metabolic Panel Routine
Direct Bilirubin Routine
Glycohemoglobin (HgbA1c) IN AM
08/03/24 06:56
0.9% Sodium Chloride 1000 ml [Nss] 1,000 ml IV BOLUS
08/03/24 07:30
Insulin Aspart Corrective Low [Novolog Flexpen-Low Resistance] See Protocol SC AC
08/03/24 08:00
FOLic ACID [Folvite] 1 mg PO DAILY
Oxcarbazepine [Trileptal] 300 mg PO BID
08/03/24 11:52
CPK [Creatine Phosphokinase] Routine
08/03/24 13:52
ED Special Safety Observation ONCE
Observation level: One to Two
08/03/24 19:04
Total CK [Creatine Phosphokinase] Urgent
08/04/24 06:00
Creatine Phosphokinase IN AM
08/04/24 18:32
Nicotine [Nicoderm Transdermal] 14 mg TRANSDERM DAILY
08/04/24 18:46
Total CK [Creatine Phosphokinase] Urgent
08/06/24 08:00
Thiamine HCl [Vitamin B1] 100 mg PO BID
Abnormal Lab Results
08/01/24 08/02/24 08/02/24
22:59 05:35 09:51
WBC 11.9 H 10^3/uL
(4.8-10.8)
RBC
MCH
Chloride 110 H mmol/L
(98-107)
Carbon Dioxide 21 L mmol/L
(22-30)
BUN 35 H mg/dl 30 H mg/dl
(9-20) (9-20)
Creatinine 1.5 H mg/dL
(0.7-1.3)
Hemoglobin A1c
Calcium
Total Bilirubin 1.4 H mg/dl
(0.2-1.3)
AST 200 H U/L 158 H U/L
(17-59) (17-59)
ALT 93 H U/L 87 H U/L
(0-50) (0-50)
Creatine Kinase 8828 H U/L 6714 H U/L
(55-170) (55-170)
Total Protein 5.8 L g/dl
(6.3-8.2)
Albumin
Urine Ketones
Salicylates < 1.0 L mg/dl
(2.0-20.0)
Acetaminophen < 10 L ug/ml
(10-30)
Ur Amphetamines Screen
U Benzodiazepines Scrn
U Marijuana (THC) Screen
POC Glucose
08/02/24 08/02/24 08/03/24
11:39 21:52 06:05
WBC
RBC 4.56 L 10^6/uL
(4.70-6.10)
MCH 31.4 H pg
(27.0-31.0)
Chloride 110 H mmol/L
(98-107)
Carbon Dioxide
BUN
Creatinine
Hemoglobin A1c 5.7 H %
(4.0-5.6)
Calcium 7.9 L mg/dl
(8.4-10.2)
Total Bilirubin
AST 121 H U/L
(17-59)
ALT 81 H U/L
(0-50)
Creatine Kinase 3905 H D U/L
(55-170)
Total Protein 4.9 L g/dl
(6.3-8.2)
Albumin 2.9 L g/dl
(3.5-5.0)
Urine Ketones
Salicylates
Acetaminophen
Ur Amphetamines Screen Positive H
(Negative)
U Benzodiazepines Scrn Positive H
(Negative)
U Marijuana (THC) Screen Positive H
(Negative)
POC Glucose 104 H mg/dl
(70-99)
08/03/24 08/03/24 08/03/24
08:00 09:31 11:52
WBC
RBC
MCH
Chloride
Carbon Dioxide
BUN
Creatinine
Hemoglobin A1c
Calcium
Total Bilirubin
AST
ALT
Creatine Kinase 3619 H U/L
(55-170)
Total Protein
Albumin
Urine Ketones 1+ A
(Negative)
Salicylates
Acetaminophen
Ur Amphetamines Screen
U Benzodiazepines Scrn
U Marijuana (THC) Screen
POC Glucose 154 H mg/dl
(70-99)
08/03/24 08/04/24 08/04/24
19:04 06:00 08:17
WBC
RBC
MCH
Chloride
Carbon Dioxide
BUN
Creatinine
Hemoglobin A1c
Calcium
Total Bilirubin
AST
ALT
Creatine Kinase 2921 H U/L 1402 H D U/L
(55-170) (55-170)
Total Protein
Albumin
Urine Ketones
Salicylates
Acetaminophen
Ur Amphetamines Screen
U Benzodiazepines Scrn
U Marijuana (THC) Screen
POC Glucose 125 H mg/dl
(70-99)
08/04/24
18:46
WBC
RBC
MCH
Chloride
Carbon Dioxide
BUN
Creatinine
Hemoglobin A1c
Calcium
Total Bilirubin
AST
ALT
Creatine Kinase 1146 H U/L
(55-170)
Total Protein
Albumin
Urine Ketones
Salicylates
Acetaminophen
Ur Amphetamines Screen
U Benzodiazepines Scrn
U Marijuana (THC) Screen
POC Glucose
08/03/24 06:05
08/03/24 06:05
Vital Signs
Initial and Last Documented VS:
Initial Vital Signs
Pulse Resp BP Pulse Ox
79 20 189/66 98
08/01/24 23:00 08/01/24 23:00 08/01/24 23:00 08/01/24 23:00
Last Documented Vital Signs
Temp Pulse Resp BP Pulse Ox
98.5 F 79 16 128/75 97
08/04/24 19:11 08/04/24 19:11 08/04/24 19:11 08/04/24 19:11 08/04/24 19:11
<Neymar Calhoun MD - Last Filed: 08/05/24 06:28>
MDM/Problems Addressed
MDM/Problems Addressed:
Patient presents in highly agitated state and uncooperative. While 302 petition is being processed, decision made to sedate patient with ketamine [address] patient in restraints, as there is great concern for continual self harming
behavior along with staff safety.
After multiple doses of Ativan, along with Haldol, patient unfortunately remains quite agitated. Additional dose of Zyprexa given along with Ativan. Afterwards, with patient safety in mind, patient given 100 mg of ketamine IV as well.
Blood work reviewed, significant for mildly elevated creatinine, likely prerenal. As such, will administer 1 L of IV fluids. Afterwards, plan is to repeat BMP.
Critical care statement: A total of 60 minutes of critical care time was provided for this patient. This includes management of unstable vital signs, evaluation of the patient at bedside, reviewing the patient's pertinent medical records, review of
old EKGs and review of pertinent medical records. This time with separate from time utilized to perform the aforementioned documented procedures
<Neymar Calhoun MD - Last Filed: 08/05/24 06:28>
*EKG
Interpreted by ED Provider?: Yes
EKG Intrepretation Date: 08/02/24
Heart Rate: 76
Rate: normal
Rhythm: sinus
[place]: normal axis
Interval: normal interval and normal QT interval
*Critical Care Note
Total Time (30-74mins, 75-104mins- exclusive of procedures): 60 min
<Gunner Lew DO - Last Filed: 08/02/24 06:55>
Update Note
Update Note:
Patient still struggling has intermittently required sedation. CK is 8828. He has been receiving fluids. He will be admitted to the hospitalist service for rhabdo observation
<Lizbeth Wagner MD - Last Filed: 08/03/24 03:44>
Update Note
Update Note:
Patient still struggling has intermittently required sedation. CK is 8828. He has been receiving fluids. He will be admitted to the hospitalist service for rhabdo observation.
August 02, 2024 8:51 PM. Patient is resting comfortably. He is not agitated at this time. I received in signout the patient is awaiting 302 placement however his CPK is elevated although it is trending down. IV fluids were reordered upon
signout. My understanding at this time is that patient will remain in the emergency department while awaiting placement. I have placed a consult order for hospitalist. Patient's medications at home were reviewed both with patient and pharmacist.
He has discontinued the olanzapine that he was taking in the past. He is also prescribed benzodiazepines, Trileptal, etc. I resumed his Trileptal and olanzapine. We will assess psychiatry and they are reassessment of patient in the morning to
provide advisement regarding medications maintenance going forward while he is here.
ED Attending Note
<Nyemar Calhoun MD - Last Filed: 08/05/24 06:28>
-
Portions of this chart may have been created with voice recognition software.� Occasional wrong word or��sound alike� substitutions may have occurred due to the inherent limitations of voice recognition software.
Discharge Plan
Departure
Patient Disposition: Psych Facility
Date of Disposition: 08/01/24
Time of Disposition: 23:20
Admit to: Telemetry
Patient Status:: 302
Condition: Serious
Discharge Problem:
Manic behavior, Rhabdomyolysis
Prescriptions:
No Action
oxcarbazepine 600 mg Tablet
600 mg PO HS
dextroamphetamine-amphetamine [Adderall] 20 mg Tablet
20 mg PO BIDPRN PRN (Reason: work)
testosterone cypionate 200 mg/mL oil
100 mg IM MOWE
acarbose 25 mg Tablet
25 mg PO TID
anastrozole 1 mg Tablet
0.5 mg PO WE
Referrals:
UNKNOWN - PT NOT,INTERVIEWE [Family Provider] -
Interventions
Interventions:
*Risk Screen - Suicide Last Done: 08/03/24 12:00
*General Assessment Last Done: 08/03/24 12:00
*Neglect/Abuse Screening Last Done: 08/03/24 12:00
*ED- Fall Risk Assessment Last Done: 08/01/24 22:55
*ED COVID-19 Vaccine History Last Done: 08/01/24 22:39
*Nursing Disposition Last Done: 08/04/24 22:07
ED-Psychological Assessment Last Done: 08/04/24 21:45
Discharge Date and Time
Discharge Date/Time: 08/04/24 22:10
Print Language: [place] CITIZ[place]
[2024-08-01 23:04] LABS: Hemoglobin 15.9 g/dL (13.0-18.0); Mean Corp Hgb Conc. 34.6 g/dL (33.0-37.0); Mean Corpuscular Hgb 30.7 pg (27.0-31.0); Mean Corpuscular Volume 88.8 fL (80.0-94.0); Mean Platelet Volume 9.6 fL (7.4-10.4); Platelet Count 248 10^3/uL (130-400); Red Blood Cell Count 5.18 10^6/uL (4.70-6.10); Red Cell Dist. Width 13.1 % (11.5-14.5); White Blood Cell Count 11.9 10^3/uL (4.8-10.8)
[2024-08-01] MEDS: ATIVAN 2 MG IV (23:11)
[2024-08-01 23:25] LABS: ALT (SGPT) 93 U/L (0-50); AST (SGOT) 200 U/L (17-59); Acetaminophen < 10 ug/ml (10-30); Albumin 4.4 g/dl (3.5-5.0); Alkaline Phosphatase 54 U/L (38-126); Blood Urea Nitrogen 35 mg/dl (9-20); Calcium 9.6 mg/dl (8.4-10.2); Carbon Dioxide 25 mmol/L (22-30); Chloride 105 mmol/L (98-107); Glucose 97 mg/dl (70-99); Potassium 4.5 mmol/L (3.5-5.1); Salicylate < 1.0 mg/dl (2.0-20.0); Sodium 138 mmol/L (135-145); Total Bilirubin 1.3 mg/dl (0.2-1.3); Total Protein 6.8 g/dl (6.3-8.2); eGFR > 60.00
[2024-08-01 23:59] LABS: Alcohol None Detected
[2024-08-02] MEDS: ATIVAN 1 MG IV ×2 (00:22→00:37)
[2024-08-02] MEDS: HALDOL 5 MG IV ×3 (00:23→05:16)
[2024-08-02] MEDS: NSS 1000 IV ×4 (00:43→21:39)
[2024-08-02] MEDS: ZYPREXA 10 MG IM (01:26)
[2024-08-02] MEDS: ATIVAN 2 MG IV (01:33)
[2024-08-02] MEDS: KETALAR 100 MG IV (01:44)
[2024-08-02 02:39] LABS: Creatine Phosphokinase 8828 U/L (55-170)
[2024-08-02 03:03] VITALS: BP 137/72
[2024-08-02 05:55] LABS: Blood Urea Nitrogen 30 mg/dl (9-20); Calcium 8.8 mg/dl (8.4-10.2); Carbon Dioxide 21 mmol/L (22-30); Chloride 110 mmol/L (98-107); Glucose 85 mg/dl (70-99); Potassium 4.7 mmol/L (3.5-5.1); Sodium 140 mmol/L (135-145); eGFR > 60.00
[2024-08-02 10:28] LABS: ALT (SGPT) 87 U/L (0-50); AST (SGOT) 158 U/L (17-59); Albumin 3.7 g/dl (3.5-5.0); Alkaline Phosphatase 38 U/L (38-126); Creatine Phosphokinase 6714 U/L (55-170); Direct Bilirubin 0.3 mg/dl (0.0-0.4); Total Bilirubin 1.4 mg/dl (0.2-1.3); Total Protein 5.8 g/dl (6.3-8.2)
--- NOTE | 2024-08-02 10:59 | CON.MD ---
Consultation - Medical
-
patient seen chart reviewed. this patient is familiar to me from assessment in february of 2023. he has been here twice since that time to be assessed in ED bc agitation and was hospitalized psychiatrically twice. he was brought to on this
occasion by his father who called 911. the police became involved and filed a 302 commitment alleging potential danger to self and others. he was described as smashing his head with his hand and drawing blood in the process. he is a and
served in the [employer] and suffers from ptsd. he is also said to suffer from bipolar disorder . the patient was very agitated in the ED and received a total of 400 mg ketamine 15 mg haldol 6 mg of ativan and 10 mg zyprexa since he was admitted
and at the present time is barely rousable . he did open his eyes from time to time but could not sustain attention given his sedation. the patient had been in leather restraints which were able to be removed. when last seen by this check writer salesperson he had
been taking latuda inderal cogentin trileptal and ambien. this check writer salesperson discharged him from the [facility] at that time to out patient followup but he required hospital admission about a month later. mr galindo also has a hx of tbi. further information to
be gathered when the patient is able to participate in the interview. the information below was obtained from prior admits to
past psych h[facility] he has been hospitalized for several months. he has had several hospitalizations at local psych facilities as well.
past medical hx hx head injury. back injury. patient was using baclofen for muscle spasms. he told me in he has 'pre diabetes' reviewing current labs cpk is 6714 down from 8828 bili 1.4 ast 158 alt 87 liekly related to bruising cbc
ok cat brain ok ecg normal tox screen pending patient reportedly has a stutter. in the past has been told low b12 and vitamin 3
substance abuse recovering alcoholic
fh depression and substance abuse
social hx patient is . he has children. he is a and [place] several tours he has worked for the [employer]
mse patient very sedated and unable to be interviewed at the present time
dx bipolar mixed w psychotic fx r/o drug induced psychosis (tox pending) ptsd hx etoh use d.o in remission
recommendation will return to see patient later today when he is more alert. patient will likely require psych hosptitalization. hospitalist following patient. cpk coming down. psych would be unlikely to accept him w cpk this high. consider hosp
at [facility] facility. 302 was already upheld.
[2024-08-02 11:00] VITALS: BP 128/74
[2024-08-02 12:11] LABS: Marijuana Positive (Negative)
[2024-08-02 12:12] LABS: Amphetamines Positive (Negative); Barbiturates Negative (Negative); Benzodiazepines Positive (Negative); Buprenorphine Negative (Negative); Cocaine Negative (Negative); Methadone Negative (Negative); Methamphetamines Negative (Negative); Opiates Negative (Negative); Phencyclidine Negative (Negative); Tricyclic Antidepressants Negative (Negative)
[2024-08-02 12:22] LABS: Fentanyl, Urine Negative (Negative)
--- NOTE | 2024-08-02 13:36 | EDRN ---
This RN spoke with Dr. Nieto in attempts to have her evaluate pt now that he is awake, alert and cooperative. Dr. Nieto states she will be in to see pt when she is available. Pt aware that he will be evaluated when Dr. Nieto is available.
--- NOTE | 2024-08-02 14:32 | W.PN.UPDATE ---
Update Note
Progress Note Update
returned to see patient again this afternoon. he was still groggy and confused given the amount of medication he received in the last 24 hours. explained to him that he could not leave hospital as he was on a 302. also explained the issue of cpk.
not clear he took it in but he accepted what i told him. he will be reassessed in am and hopefully a psych bed can be found for him tomorrow if cpk has come down.
--- NOTE | 2024-08-02 21:16 | CON.HOSP ---
Family Physician
-
Family Physician: INTERVIEWE UNKNOWN - PT NOT
Chief Complaint
-
Agitation
History of Present Illness
Patient is a 38y M with PMH significant for PTSD and Bipolar disorder who presented to ED as crisis evaluation yesterday evening. Patient was quite agitated on arrival and required multiple sedating medications and physical restraints to prevent
harm to himself or others. Patient was ultimately sedated and has been resting in the ED all day today. He was seen by Psychiatry on two occasions - though was sedated on both occasions limiting their evaluation.
Patient was noted to have elevated CPK on lab analysis - likely secondary to physical restraints.
Medicine was consulted for management of CPK elevation.
At the time of my examination, patient is awake and alert and interactive. He states that he feels well at present.
He answers most questions / follows commands appropriately. His speech is somewhat rambling at times.
Medical History
Past Medical History
Additional Past Medical History:
PTSD / Bipolar Disorder
DM-II
Additional Past Surgical History:
Rotator Cuff Surgery
Social History
Tobacco: Non-smoker (Uses smokelss / chewing tobacco.)
Alcohol: Other (Documented history of alcohol use disorder. Unclear last use.)
Allergies / Home Medications
Allergies reflects when Allergies were last updated in [facility].
Home Medications with original date entered in [facility]
Allergy/Medication List:
Allergies
Allergy/AdvReac Type Severity Reaction Status Date / Time
No Known Allergies Allergy Verified 08/02/24 11:15
Home Medications
oxcarbazepine 600 mg tablet 600 mg PO HS 03/01/23
acarbose 25 mg tablet 25 mg PO TID 08/02/24
anastrozole 1 mg tablet 0.5 mg PO WE 08/02/24
dextroamphetamine-amphetamine 20 mg tablet (Adderall) 20 mg PO BIDPRN PRN work 08/02/24
testosterone cypionate 200 mg/mL intramuscular oil 100 mg IM MOWE 08/02/24
Review of Systems
-
History Source: Patient
A 12 point Review of Systems was completed except as noted: Yes
Constitutional: Denies Fever or Chills
Respiratory: Denies Cough or Trouble Breathing
Cardiac: Denies Chest Pain or Palpitations
Abdomen/GI: Denies Abdominal Pain, Nausea, Vomiting or Diarrhea
Musculoskeletal: Denies Joint Pain or Edema
Neurological: Denies Dizzy or Headache
Physical Exam
Vital Signs
Vital Signs
Temp Pulse Resp BP Pulse Ox
98.5 F 69 16 128/74 99
08/02/24 11:00 08/02/24 11:00 08/02/24 11:00 08/02/24 11:00 08/02/24 11:00
Physical Exam
General: Other (38y M calm and comfortable at present. Cooperating with history / exam.)
HEENT: Moist Mucous Membranes
Respiratory: Clear; Negative Wheezes, Rales or Rhonchi
Cardiac: S1/S2 and Regular Rhythm; Negative Murmur
GI: Soft, Non Tender, Non Distended and Normal Bowel Sounds
Musculoskeletal: No Clubbing, No Cyanosis and No Edema
Neuro: AO x 3
Laboratory Results
-
Laboratory Results
08/01/24 22:59
08/02/24 05:35
Total Bilirubin 1.4 mg/dl (0.2-1.3) H 08/02/24 09:51
AST 158 U/L (17-59) H 08/02/24 09:51
ALT 87 U/L (0-50) H 08/02/24 09:51
Alkaline Phosphatase 38 U/L (38-126) 08/02/24 09:51
Impression / Plan
-
A/R: Patient is a 38y M with PMH significant for PTSD / Bipolar disorder who presented to ED for crisis evaluation. Patient required multiple doses of seating meds along with physical restraints to avoid injury to himself or others. Medicine
service consulted for elevation in CPK.
CPK Elevation
- Muscle breakdown secondary to straining against physical restraints +/- substance use or abuse.
- Renal function normal at present. Check UA for evidence of myoglobinuria.
- Aggressive IVF resuscitation to avoid nephrotoxicity.
- Repeat CPK in the AM (already trending down: 8k to 6k).
- Would discontinue androgen supplementation that patient apparently receives from a 'holistic' provider (injectable testosterone and anastrazole).
- Would also avoid stimulants / amphetamines if possible.
- If renal function remains normal and CPK continues to trend downward - patient would be candidate for release to psychiatric facility.
PTSD
Bipolar Disorder with Acute Psychosis
- Improved from initial arrival.
- Continue / resume home medications (oxcarbazepine / Seroquel).
- Ativan PRN.
- Psychiatry evaluation appreciated. 302 upheld. To Psych facility hopefully in the AM.
Alcohol Use Disorder
- Unclear when last use of alcohol was. EtOH undetectable on ED labs.
- Follow MSAS protocol for now to avoid any withdrawal symptoms on top of his current psychiatric issues.
- Thiamine / folate / MVI replacement.
DM-II
- Unclear to what extent his steroid / testosterone supplementation contributes to his hyperglycemia.
- Discontinue hormonal therapies / stimulants as noted above.
- Follow glucose and cover with SSI if needed.
- Hold acarbose. Update A1C.
Right Hand Pain
- Patient notes pain in the R hand following struggles / agitation overnight.
- X-rays were done which showed no evidence of fracture.
- Supportive care.
Thank you for this consultation. Will follow repeat CPK levels in the AM to assess medical clearance for Psych placement.
[2024-08-02] MEDS: ZYPREXA 5 MG PO (21:39)
[2024-08-02] MEDS: TRILEPTAL 300 MG PO (21:40)
[2024-08-02 21:45] VITALS: BP 117/54
[2024-08-02 21:54] LABS: Glucose - Point of Care 104 mg/dl (70-99)
[2024-08-03] MEDS: NSS 1000 IV ×6 (02:03→21:15)
[2024-08-03 04:20] VITALS: BP 107/61
[2024-08-03 06:27] LABS: Hematocrit 41.5 % (39.0-52.0); Hemoglobin 14.3 g/dL (13.0-18.0); Mean Corp Hgb Conc. 34.5 g/dL (33.0-37.0); Mean Corpuscular Hgb 31.4 pg (27.0-31.0); Mean Platelet Volume 9.3 fL (7.4-10.4); Platelet Count 175 10^3/uL (130-400); Red Blood Cell Count 4.56 10^6/uL (4.70-6.10); Red Cell Dist. Width 13.6 % (11.5-14.5)
[2024-08-03 06:41] LABS: ALT (SGPT) 81 U/L (0-50); AST (SGOT) 121 U/L (17-59); Albumin 2.9 g/dl (3.5-5.0); Alkaline Phosphatase 43 U/L (38-126); Blood Urea Nitrogen 18 mg/dl (9-20); Calcium 7.9 mg/dl (8.4-10.2); Carbon Dioxide 23 mmol/L (22-30); Chloride 110 mmol/L (98-107); Direct Bilirubin 0.2 mg/dl (0.0-0.4); Estimated Creatinine Clearance 108 ml/min; Glucose 91 mg/dl (70-99); Potassium 4.4 mmol/L (3.5-5.1); Sodium 136 mmol/L (135-145); Total Bilirubin 1.2 mg/dl (0.2-1.3); Total Protein 4.9 g/dl (6.3-8.2); eGFR > 60.00
[2024-08-03 06:49] LABS: Creatine Phosphokinase 3905 U/L (55-170)
[2024-08-03 08:00] VITALS: BP 116/70
--- NOTE | 2024-08-03 08:04 | W.PN.HOSP.TC ---
Today's Communication/Plan
-
cont agressive IVF
repeat CPK in 12h
Assessment / Plan
Assessment / Plan
38yo M with ADHD, preDM, substance abuse d/o, depression d/o, bipolar, PSD came with agitation amd managed for bipolar vs drug induced psychosis, on 302 by police. [employer] consulted for rhabdomyolisis mgmt. As per patient he became agitated and
struc his R hand and forehead.
A/P:
#Traumatic rhabdomyolisis
Improving on IVF
repeat CPK at noon, with numbers <5000 - highly unlikely to cause any renal injury. If continues to drop - can proceed with oral only hydration and [employer] will sign off
#PreDM
Insulin SS while in hospital
resume low carb diet upon d/c, questionable usefulness of acarbose - defer to PCP
#mild bilirubinemia
resolved
bno abd pain
#Elevated AST/ALT
Improving with improvement in CPK - most likely muscle injury related
Outpatient HepC and US liver advised on non-urgent basis
#Androgen use
stop
#L hand swelling
2/2 trauma
no Fx on XR, ROM minimally affected, pain improving
#Head injusry
CT head unremarkablee for acute findings
#Bipolar d/o with psychotic features
#Substance abuse
#PTSD
Utox positive for marijuana, amphetamins (pt on Adderal) and BZD
Psych to follow
DVT ppx SCDs
Full code
I have spent at least 58min reviewing chart, test results and providing direct patient care
Anticipated Discharge: Within 24 hours
Subjective/Interval History
-
Date of Service: August 03, 2024
Objective Data
-
Labs:
Laboratory Results
08/03/24
06:05
WBC 7.0
Hgb 14.3
Hct 41.5
Plt Count 175 D
Sodium 136
Potassium 4.4
Chloride 110 H
Carbon Dioxide 23
BUN 18
Creatinine 0.9
Glucose 91
Calcium 7.9 L
Total Bilirubin 1.2
AST 121 H
ALT 81 H
Alkaline Phosphatase 43
Vital Signs:
Vital Signs
Temp Pulse Resp BP Pulse Ox
98.2 F 77 14 107/61 97
08/02/24 21:45 08/03/24 04:20 08/03/24 04:20 08/03/24 04:20 08/03/24 04:20
Review of Systems
-
History Source: Patient
All other systems: Reviewed and negative
Musculoskeletal: Reports Other (R hand swelling, R forehead less then 1cm scratch)
Physical Exam
-
General: Comfortable
HEENT: Normocephalic
Respiratory: Clear to Auscultation
Cardiac: Regular Rhythm
GI: Soft, Nontender and Nondistended
Neuro: Awake, Alert, Oriented and AO x 3
Psych: Calm
[2024-08-03 08:29] LABS: Urine Albumin Negative (Neg - Trace); Urine Bilirubin Negative (Negative); Urine Character Clear (Clear); Urine Color Yellow; Urine Glucose Negative (Negative); Urine Ketone 1+ (Negative); Urine Leukocyte Negative (Negative); Urine Nitrite Negative (Negative); Urine Occult Blood Negative (Negative); Urine Urobilinogen Negative (Neg - 1+)
[2024-08-03 09:35] LABS: Glucose - Point of Care 154 mg/dl (70-99)
--- NOTE | 2024-08-03 10:16 | W.PN.UPDATE ---
Update Note
Progress Note Update
38 y/o disabled on 302 by Police from 08/01/24 with history of bipolar disorder, PTSD and TBI. Pt. reports being treated medically with testosterone for low testosterone (130; maintained around 850) and Adderall for ADHD. However,
PDMP does not indicate prescriptions of either drug. His tox screen is positive for cannabis, amphetamine and benzo's (perhaps from hospital). He punched the flagpole and his head on admission and required 4-pt. leather restraints. Required IM
Ketamine, benzo's and antipsychotics to control his agitation.
Seen in his room. Heavily tattooed and muscular. Alert and oriented to day of week, month and year (off on date by one day); to person and place and situation, although does not seem to remember much of what happened prior to coming to the
hospital, although it seems consistent with alexandro or amphetamine psychosis. Denies hallucinations and paranoid ideation and does not show any evidence of either. Is mildly restless, speech is not pressured (has stutter), mood is mildly anxious and
he related appropriately. Denies any drinking (was treated in for Alcohol Use). Some use of cannabis.
He reports having been medically discharged from the [employer] 3 years ago. Is , Living in [place] and has a 3 y/o and 17 m/o child. has 'kicked him out.' He is awaiting a residential placement through [facility] in [place]. Sees a Dr. Dudley
at [facility] and is prescribed Trileptal (does not take), Seroquel 150 mg. HS (only takes 50 mg.) and allegedly testosterone and Adderall from different doctors. 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
passing the semester.
LFT's were elevated and normalizing; CK was 8828 and falling; today 3905. AST now 121 (max 200), ALT 81 (max 93).
Given his severe presentation and need for stabilization, will uphold 302. I instructed [facility] to begin bed search as he is medically stabilizing.
I advised him to be cautious with testosterone supplementation and to not take Adderall. He is agreeable to me prescribing Seroquel 100 mg. HS (which is already prescribed). Also has PRN Ativan. Labs being followed.
[2024-08-03 11:59] VITALS: BP 138/76
[2024-08-03 12:39] LABS: Creatine Phosphokinase 3619 U/L (55-170)
--- NOTE | 2024-08-03 12:48 | ED.CRISIS ---
ED Crisis Note
ED Crisis Note
Subjective:
I evaluated the patient at bedside. He is calm and has no new complaints. He is not sure he necessarily needs to be sent to a psychiatric facility.
Objective:
Calm and cooperative.
Assessment/Plan:
The patient CK level peak near 9000 with a creatinine of 1.5 initially. He was given aggressive fluid rehydration and his CK is now down to 3900 this morning and now 3600 most recently. I reviewed the medicine note from today which indicated that
the patient can be medically cleared as long as levels remain under 5000. His renal function continues to improve and is at baseline currently.
[2024-08-03 13:42] LABS: Glycohemoglobin (HgbA1c) 5.7 % (4.0-5.6)
[2024-08-03 19:28] VITALS: BP 130/72
[2024-08-03 19:54] LABS: Creatine Phosphokinase 2921 U/L (55-170)
[2024-08-03 21:19] VITALS: BMI 25.7
[2024-08-03 23:48] VITALS: BP 133/81
[2024-08-04] MEDS: NSS 1000 IV (03:01)
[2024-08-04] MEDS: NSS IV (05:33)
[2024-08-04 06:44] LABS: Creatine Phosphokinase 1402 U/L (55-170)
[2024-08-04 08:18] LABS: Glucose - Point of Care 125 mg/dl (70-99)
--- NOTE | 2024-08-04 08:25 | W.PN.HOSP.TC ---
Today's Communication/Plan
-
stop IVF
encourage oral hydration
sign off
Assessment / Plan
Assessment / Plan
38yo M with ADHD, preDM, substance abuse d/o, depression d/o, bipolar, PSD came with agitation amd managed for bipolar vs drug induced psychosis, on 302 by police. Shoe Shiner consulted for rhabdomyolysis mgmt. As per patient he became agitated and
struck his R hand and forehead. CPK improved on IVF, reasonable to cont with oral hydration only with CPK 1402. Advised outpatient follow up for LFT with PCP - patient verbalized understanding of the instructions. Mediclaly stable for next level of
care, order checker will sign off
A/P:
#Traumatic rhabdomyolysis
Improving on IVF
repeat CPK at noon, with numbers <5000 - highly unlikely to cause any renal injury. If continues to drop - can proceed with oral only hydration and Shoe Shiner will sign off
#PreDM
Insulin SS while in hospital
resume low carb diet upon d/c, questionable usefulness of acarbose - defer to PCP
#mild bilirubinemia
resolved
bno abd pain
#Elevated AST/ALT
Improving with improvement in CPK - most likely muscle injury related
Outpatient HepC and US liver advised on non-urgent basis
#Androgen use
stop
#L hand swelling
2/2 trauma
no Fx on XR, ROM minimally affected, pain improving
#Head injusry
CT head unremarkablee for acute findings
#Bipolar d/o with psychotic features
#Substance abuse
#PTSD
Utox positive for marijuana, amphetamins (pt on Adderal) and BZD
Psych to follow
DVT ppx SCDs
Full code
I have spent at least 58min reviewing chart, test results and providing direct patient care
Anticipated Discharge: Within 24 hours
Subjective/Interval History
-
Date of Service: August 04, 2024
Objective Data
-
Vital Signs:
Vital Signs
Temp Pulse Resp BP Pulse Ox
98.1 F 73 18 133/81 98
08/03/24 23:48 08/03/24 23:48 08/03/24 23:48 08/03/24 23:48 08/03/24 23:48
I&O
08/03/24 08/04/24 08/05/24
06:59 06:59 06:59
Intake Total 380 / 380
Output Total 800 / 800
Balance -420 / -420
Review of Systems
-
History Source: Patient
All other systems: Reviewed and negative
Physical Exam
-
General: No Apparent Distress
Neuro: Awake, Alert, Oriented and AO x 3
Psych: Calm
--- NOTE | 2024-08-04 14:00 | W.PN.UPDATE ---
Update Note
Progress Note Update
38 y/o with bipolar disorder and PTSD, TBI also treated with Adderall 20 mg. BID and testosterone injections (both appear on PDMP but overlooked by me yesterday) is on 302 Commitment for manic behavior including punching the hospital
flagpole and punching his own head. His CK was elevated to 8828 on 08/01, but has been consistently decreasing now at 1402. He refused all medications (he said to me that they forgot to give them).
He is now hyperactive, talkative, and attempting to have me release him from the 302. Dishonest about medications. Seems to be hypomanic. No evidence of psychosis now.
Will uphold 302.
Encourage medication compliance.
Follow CK as ordered by ED.
Bed search being conducted by Crisis Workers.
--- NOTE | 2024-08-04 14:38 | ED.CRISIS ---
ED Crisis Note
ED Crisis Note
Subjective:
No other new psychiatric issues.
Assessment/Plan:
CK remains elevated. One facility wanted his CK level below 400, another is reviewing the case. Transfer still pending. I have ordered another CK level for tonight at 6 PM
[2024-08-04 14:45] VITALS: BP 132/82
[2024-08-04] MEDS: NICODERM TRANSDERMAL 14 MG TRANSDERM (18:36)
[2024-08-04 19:10] LABS: Creatine Phosphokinase 1146 U/L (55-170)
[2024-08-04 19:11] VITALS: BP 128/75
--- NOTE | 2024-08-04 19:12 | PTCARENOTE ---
took over care. Pt is conversant with pressed speech, cooperative with care. able to hold to one topic for a short time but switches quickly. Pt paces in room. Pt encouraged to drink water. RN answered and education on [place] and the importance of
rest, water and monitoring urine output. Pt reports normal urine amounts of a clear quality. Per security, PU time slotted for 2029. Will check in with crisis to confirm. Pt denies any further needs. RN offered diversional activities such as a
number puzzle but was refused. room safe, phone at bedside, pt in approp psych attire.
--- NOTE | 2024-08-04 21:48 | TRANSFER ---
pt picked up by acute care. Belonging retuned to patient. Pt confirmed all valuable were present. Belongings were bagged up and given to transport to bring.
== END 2024-08-04 22:10 ==
LOC: EMR 21:19
PROVIDERS: Emergency Medicine; Internal Medicine; CONSULT PHYSICIAN Hospitalist; CONSULT PHYSICIAN Psychiatry & Neurology Psychiatry; EMERGENCY PHYSICIAN Emergency Medicine
DX: M62.82 Rhabdomyolysis (principal); F31.64 Bipolar disorder, current episode mixed, severe, with psychotic features; F43.10 Post-traumatic stress disorder, unspecified; F10.10 Alcohol abuse, uncomplicated; F90.9 Attention-deficit hyperactivity disorder, unspecified type; F17.200 Nicotine dependence, unspecified, uncomplicated; Z87.820 Personal history of traumatic brain injury; E11.65 Type 2 diabetes mellitus with hyperglycemia
CPT/HCPCS: 99291; 96374; 96375; 96376; 96372; 96361; 70450; 73130; 80048; 80053; 80076; 80143; 80179; 80306; 80307; 81003; 82077; 82248; 82550; 82962; 83036; 85027; 93005; J2358

== ENCOUNTER 2024-08-18 22:31 | Emergency (ER) | payer BC, SELFPAY ==
[2024-08-18 22:39] VITALS: BP 138/79
--- NOTE | 2024-08-18 23:40 | ED.MUSCINJ ---
HPI-Injury
General
Chief Complaint: Musculo-Skeletal Complaint
Source: patient
Exam Limitations: none
Time Seen by Provider: 08/18/24 23:23
Nursing documentation reviewed up to this point in time: agreed with
History of Present Illness-Injury
Initial Injury comments:
38-year-old male presents emerged part with right hand swelling that occurred about a week ago. Patient had x-rays at the time and he is here for follow-up. He denies new injury.
Past History
Past History
ED Past Medical History: Asthma (has not bothered him for 'years.') and Psychiatric
Social History
Tobacco: Smoker
Alcohol: Occasional
Personal:
Living: with family
Employment: Not employed
Review of Systems
Review of Systems
Allergies reviewed?: Yes
All Other Systems: ROS reviewed and negative except as documented in HPI and ROS
Constitutional: Reports no symptoms
EENT: Reports no symptoms
Respiratory: Reports no symptoms
Cardiac: Reports no symptoms
ABD/GI: Reports no symptoms
: Reports no symptoms
Musculoskeletal: Reports joint pain
Skin: Reports no symptoms
Neurological: Reports no symptoms
Endocrine: Reports no symptoms
Hematologic/Lymphatic: Reports no symptoms
Psychiatric: Reports anxiety
Phy Exam
General Physical Exam
General Presentation: well appearing and mild distress
General age: appears stated age
General Skin: warm
General Habitus: normal
General Mental: alert
Pulmonary Exam
Pulmonary Exam: no respiratory distress and no cough
Musculoskeletal Exam
Musculoskeletal Exam: full ROM and neuro vasc intact
Skin Exam
Skin Exam: normal color and warm/dry
Psychiatric Exam
Psychiatric Exam: normal mood/affect
Injury Course
Orders/Labs/Results
Orders:
Orders
08/18/24 23:17
Hand, Right 3 View [CR Hand - Right Min 3 Views] Urgent
Comment:
Reason For Exam: right hand pain/swelling
*Radiology
Radiology exam reviewed: all reviewed NAD by ED Provider
*Critical Care Note
Total Time (30-74mins, 75-104mins- exclusive of procedures): Not Applicable
ED Attending Note
-
Portions of this chart may have been created with voice recognition software.� Occasional wrong word or��sound alike� substitutions may have occurred due to the inherent limitations of voice recognition software.
Discharge Plan
Departure
Patient Disposition: Home (Routine Discharge)
Date of Disposition: 08/18/24
Time of Disposition: 23:49
Patient with high blood pressure during this ER visit?: Yes
Discharge Problem:
Hand injury
Instructions: Muscle and Bone Pain (DC), Using Cold for Pain, Splint Care, BLOOD PRESSURE
Prescriptions:
No Action
oxcarbazepine 600 mg Tablet
600 mg PO HS
dextroamphetamine-amphetamine [Adderall] 20 mg Tablet
20 mg PO BIDPRN PRN (Reason: work)
testosterone cypionate 200 mg/mL oil
100 mg IM MOWE
acarbose 25 mg Tablet
25 mg PO TID
anastrozole 1 mg Tablet
0.5 mg PO WE
Referrals:
Kofi Marie MD [Active] -
Activity Restrictions/Additional Instructions:
Tylenol or Motrin for the pain.
It was a pleasure meeting you and taking part in your care. We hope for your continued healing and wellness.
Please read discharge instructions in their entirety. However, they are for general education and may not describe your exact diagnosis at discharge. Information on your ER visit and medical conditions were discussed with you along with appropriate
follow up information...
If indicated, please take your medications as instructed and indicated on discharge paperwork.
Please schedule a follow up appointment as directed. Call to schedule an appointment
Please return to the emergency department with ANY change in, persisting, or worsening of symptoms. If any of your symptoms do not improve, or persist, or become more severe within 6-12 hours, please return to the emergency department for further
care.
Please return to the emergency department if you develop a headache, neck pain/stiffness, fever greater than 100.4F, chest pain, shortness of breath, persistent nausea, vomiting, slurred speech, difficulty walking, numbness/tingling, weakness, signs
of infection or any other symptoms that are worrisome to you.
If you have any questions or concerns please do not hesitate to call the Hospital at
Interventions
Interventions:
*Risk Screen - Suicide Last Done: 08/19/24 00:04
*General Assessment Last Done: 08/18/24 22:39
*Neglect/Abuse Screening Last Done: 08/18/24 23:23
*ED- Fall Risk Assessment Last Done: 08/18/24 23:23
*Nursing Disposition Last Done: 08/19/24 00:04
ED-Musculoskeletal Assessment Last Done: 08/18/24 23:23
Discharge Date and Time
Discharge Date/Time: 08/19/24 00:05
Print Language: KOSOVAN
[2024-08-19 00:04] VITALS: BP 134/76
== END 2024-08-19 00:05 | disposition home or self-care (01) ==
LOC: EMR 22:31
PROVIDERS: EMERGENCY PHYSICIAN Student in an Organized Health Care Education/Training Program
DX: S69.91XA Unspecified injury of right wrist, hand and finger(s), initial encounter (principal); M79.641 Pain in right hand; M25.541 Pain in joints of right hand; X58.XXXA Exposure to other specified factors, initial encounter; R03.0 Elevated blood-pressure reading, without diagnosis of hypertension; F41.9 Anxiety disorder, unspecified; J45.909 Unspecified asthma, uncomplicated; F31.9 Bipolar disorder, unspecified; F43.10 Post-traumatic stress disorder, unspecified; F17.200 Nicotine dependence, unspecified, uncomplicated; Z87.820 Personal history of traumatic brain injury
CPT/HCPCS: 99283; 29125; 73130

== ENCOUNTER 2024-08-20 14:53 | Emergency (ER) | payer BC, SELFPAY ==
--- NOTE | 2024-08-20 15:37 | ED.GENMED ---
History of Present Illness
General
Chief Complaint: Crisis Evaluation
Source: patient and records
Exam Limitations: none
Time Seen by Provider: 08/20/24 15:10
Nursing documentation reviewed up to this point in time: agreed with
History of Present Illness
History of Present Illness:
38-year-old male with a past medical history as noted well-known to our [facility] crisis center with multiple prior visits and admissions presents to the ER today escorted by police and affairs officer; he was brought in for crisis evaluation
after apparently making a homicidal threat on the telephone last night. Per crisis�no 302 filed at this point by police or [facility] as they did not feel there were grounds for 302 but did feel patient should have crisis evaluation. Patient was notably
admitted for inpatient psychiatric treatment about 3 weeks ago. He says that he is currently doing intensive outpatient therapy. Patient says that he feels well here. He denies homicidal or suicidal ideations. He says that he is trying to
rebuild his life and that he feels that an inpatient psychiatric admission would not be helpful to him at this point in time. He denies any drug or alcohol use.
Past History
Past History
ED Past Medical History: Asthma (has not bothered him for 'years.') and Psychiatric
Social History
Tobacco: Smoker
Alcohol: Occasional
Personal:
Living: with family
Employment: Not employed
Review of Systems
Review of Systems
All Other Systems: ROS reviewed and negative except as documented in HPI and ROS
Psychiatric: Reports other (Denies homicidal ideation); Denies depression, suicidal or hallucinations
Phy Exam
Physical Exam
Physical Exam:
General: Awake, alert; he is standing up, somewhat restless; he does have pronounced stutter but is coherent, answers questions appropriately, seems to be future-oriented and is a reasonable historian
Head: Normocephalic, atraumatic
Eyes: Conjunctiva normal
Throat: Airway intact, handling secretions
Neck: Trachea midline, supple without meningismus
Lungs: Breathing comfortably no distress
Neuro: No gross deficits
Skin: No signs of trauma
Extremities: Warm and well-perfused
Scores
Heart Failure Risk
Heart Failure Risk Score: Not Applicable
Heart Score for Chest Pain Patients
STEMI patient?: Not applicable
Withdrawal Assessment of Alcohol
Withdrawal Assessment Completed?: Not applicable
Course
Orders/Labs/Results
Orders:
Orders
08/20/24 15:22
Crisis Consult Routine
Reason for Consult: homicidal threats
Vital Signs
Initial and Last Documented VS:
Initial Vital Signs
Temp Pulse Resp Pulse Ox
36.7 C 110 20 96
08/20/24 14:59 08/20/24 14:59 08/20/24 14:59 08/20/24 14:59
Last Documented Vital Signs
Temp Pulse Resp Pulse Ox
36.7 C 110 20 96
08/20/24 14:59 08/20/24 14:59 08/20/24 14:59 08/20/24 14:59
MDM/Problems Addressed
Differential Diagnosis Includes:
Grecia, psychosis, drug use, behavioral issue
MDM/Problems Addressed:
38-year-old male presents for crisis assessment after apparently making a homicidal threat on the phone last night. No 302 filed by police or [facility] at this point. Patient says that he is not suicidal, denies being homicidal. He says that he feels
fine and does not wish to go for inpatient psychiatric treatment. He did have recent admission 3 weeks ago and says that he is doing intensive outpatient therapy. At least based on my observations today there are no grounds for involuntary
psychiatric hold. While he is somewhat restless he seems to have a clear mind at this moment, can fully recount his psychiatric history, recent admission, current outpatient treatment plan. He seems to be goal-directed and future oriented. He
adamantly denies that he is suicidal or homicidal at this point in time. I cannot account for but he said last night�he denies homicidal threats. Apparently police/[facility] did not feel that it anselmo to the point of filing a 302 themselves. He is
willing to talk to our crisis staff here. Will try to reach out to clarify history from [facility]. Discussed with crisis team for evaluation.
Crisis performed their assessment patient is well plugged into outpatient psychiatric resources including intensive outpatient therapy. They do not see any grounds for involuntary psychiatric commitment and I tend to agree based on my observations
here. They reached out to patient's apparently patient made vague threats about wanting to kill police but no specific threats advanced. Patient acknowledges here that this was inappropriate. At this point I do not see any clear indication
based on my observations for involuntary psychiatric hold and patient wishes to leave the hospital to continue to pursue outpatient therapy. Will discharge in keeping with his wishes.
Chronic conditions affecting care:
PTSD/bipolar disorder
*Pulse Oximetry
Patient hypoxic: no
*Critical Care Note
Total Time (30-74mins, 75-104mins- exclusive of procedures): Not Applicable
Data Reviewed
Source: patient and records
Patient Management
Discussion with other providers: Other (Discussed with crisis staff)
ED Attending Note
-
Portions of this chart may have been created with voice recognition software.� Occasional wrong word or��sound alike� substitutions may have occurred due to the inherent limitations of voice recognition software.
Discharge Plan
Departure
Patient Disposition: Home (Routine Discharge)
Date of Disposition: 08/20/24
Time of Disposition: 16:30
Patient with high blood pressure during this ER visit?: No
Discharge Problem:
Mental health-related complaint
Prescriptions:
No Action
oxcarbazepine 600 mg Tablet
600 mg PO HS
dextroamphetamine-amphetamine [Adderall] 20 mg Tablet
20 mg PO BIDPRN PRN (Reason: work)
testosterone cypionate 200 mg/mL oil
100 mg IM MOWE
acarbose 25 mg Tablet
25 mg PO TID
anastrozole 1 mg Tablet
0.5 mg PO WE
Interventions
Interventions:
*Risk Screen - Suicide Last Done: 08/20/24 14:59
*General Assessment Last Done: 08/20/24 14:59
*Neglect/Abuse Screening Last Done: 08/20/24 14:59
ED-Psychological Assessment Last Done: 08/20/24 15:23
Discharge Date and Time
Print Language: STATELESS
[2024-08-20 16:52] VITALS: BP 135/71
== END 2024-08-20 17:00 | disposition home or self-care (01) ==
LOC: EMR 14:53
PROVIDERS: EMERGENCY PHYSICIAN Emergency Medicine
DX: F99 Mental disorder, not otherwise specified (principal); F31.9 Bipolar disorder, unspecified; F43.10 Post-traumatic stress disorder, unspecified; F17.200 Nicotine dependence, unspecified, uncomplicated
CPT/HCPCS: 99283